=== PATIENT | male | born 1980 | race African-American/Black ===

== ENCOUNTER 2019-12-20 17:03 | Emergency (ER) | payer MEDICAID, OTHER ==
[~2019-12-20] VITALS: Ht 182.9 cm; Wt 84.1 kg
[2019-12-20] MEDS ORDERED: ACETAMINOPHEN 325 MG TABLET PO ONE (19:30)
[2019-12-20 21:30] VITALS: BP 122/82
== END 2019-12-20 21:38 | disposition home or self-care (01) ==
LOC: EMS 17:03
DX: S13.4XXA Sprain of ligaments of cervical spine, initial encounter (principal); V49.9XXA Car occupant (driver) (passenger) injured in unspecified traffic accident, initial encounter; Y93.89 Activity, other specified; Y92.488 Other paved roadways as the place of occurrence of the external cause; Y99.8 Other external cause status
CPT/HCPCS: 72052; 72125; Z7502; Z7610